=== PATIENT | male | born 1965 | race Caucasian/White ===

== ENCOUNTER 2024-01-09 09:06 | Day surgery (SDC) | payer BC ==
[2024-01-04 13:45] VITALS: BMI 28.1
[2024-01-09 09:24] VITALS: RESP 18
[2024-01-09 10:36] VITALS: TEMP 97.9
[2024-01-09 11:05] VITALS: BP 126/67; PULSE 63
== END 2024-01-09 11:05 | disposition home or self-care (01) ==
LOC: FASU-ENDO 09:06
PROVIDERS: ATTEND Internal Medicine Gastroenterology
PROC: 0DBL8ZX Excision of Transverse Colon, Via Natural or Artificial Opening Endoscopic, Diagnostic (ICD-10-PCS; 2024-01-09)
PROC: 0DBH8ZX Excision of Cecum, Via Natural or Artificial Opening Endoscopic, Diagnostic (ICD-10-PCS; principal; 2024-01-09 10:11)
DX: Z12.11 Encounter for screening for malignant neoplasm of colon (principal); D12.0 Benign neoplasm of cecum; D12.2 Benign neoplasm of ascending colon; K57.30 Diverticulosis of large intestine without perforation or abscess without bleeding
CPT/HCPCS: 88305-TC